=== PATIENT | female | born 1995 | race Two or more races ===

== ENCOUNTER 2018-07-09 09:26 | Emergency (ER) ==
[2018-07-09 09:32] VITALS: BP 116/75; TEMP 98.4; BMI 24.3
--- NOTE | 2018-07-09 10:17 | ED.PDOC ---
General ED Provider: Dr. MAHSA DECKER Chief Complaint: Stated Complaint: Patient states is 6 mo and is incarcerated at [facility]. This AM patient complained of sudden onset of suprapubic pain and had small amt bright red vaginal spotting. Officer reported she was doubled over in pain in the halfway and upon entering car for trip to hospital appeared to have spontaneous resolution of pain, no further complaints. Denies Vaginal bleeding at present. FHT 147. Explained need for evalution including Ultrasound.Requested to do pelvic exam to assess and Cervical thinning or dilation but patient refused.(confirmed by NAHUN Colon) Time Seen by Physician: 10:05 Mode of Arrival: Walk-In Information Source: Patient Exam Limitations: No limitations Primary Care Provider: OB in [facility] Referred to ED by: Other (halfway) Nursing and Triage Documentation Reviewed and Agree: Yes Does patient meet sepsis criteria?: No System Inflammatory Response Syndrome: Not Applicable Sepsis Protocol: For patient's 13 years and over: Temp is 96.8 and below OR 101 and greater Pulse >90 BPM Resp >20/minute Acutely Altered Mental Status Are patient's symptoms suggestive of a new infection, such as: -Pneumonia -Skin, Soft Tissue -Endocarditis -UTI -Bone, Joint Infection -Implantable Device -Acute Abdominal Infection -Wound Infection -Meningitis -Blood Stream Catheter Infection -Unknown STEAM DRIER TENDER Complaint Exam - Vaginal Bleeding Complaint/Exam Symptoms Are: Resolved Timing: Intermittent Initial Severity: Moderate Current Severity: None # of Pads Per Hour: 0 Character: Reports: Bright red Aggravating: Reports: None Alleviating: Reports: Rest Associated Signs and Symptoms: Reports: Cramping. Denies: Dizziness, Lightheadedness, Pale, UTI symptoms, Abdominal pain, Generalized pain Related History: Reports: Similar episode (hx sub chorionic bleed and has had 2 rhogam injections) : 1 Para: 0 Ectopic Risk Factors: Reports: None Spontaneous AB Risk Factors: Reports: None Placental Abruption Risk Factors: Reports: None Patient Rh Status: Unknown (suspect Rh neg since she received RHogam) Related Surgical History: Reports: None Abdominal Findings: Present: None, Other (pos active movement) Vaginal Exam: Present: Normal Findings (Patient refused exam) Differential Diagnoses: Placenta Previa - Labor/Delivery Complaint/Exam Expected Date of Delivery: 10/11/18 Review of Systems - Review Of Systems Constitutional: Reports: No symptoms Eyes: Reports: No symptoms Ears, Nose, Mouth, Throat: Reports: No symptoms Respiratory: Reports: No symptoms Cardiac: Reports: No symptoms GI: Reports: No symptoms : Reports: No symptoms Musculoskeletal: Reports: No symptoms Skin: Reports: No symptoms Neurological: Reports: No symptoms Endocrine: Reports: No symptoms Hematologic/Lymphatic: Reports: No symptoms All Other Systems: Reviewed and Negative Past Medical History - Past Medical History Previously Healthy: Yes Endocrine: Reports: None Cardiovascular: Reports: None Respiratory: Reports: None Hematological: Reports: None Gastrointestinal: Reports: None Genitourinary: Reports: None Neuro/Psych: Reports: None Musculoskeletal: Reports: None Cancer: Reports: None Last Menstrual Period: - Surgical History General Surgical History: Reports: None - Family History Family History: Reports: None - Social History Smoking Status: Never smoker Hx Substance Use: No Alcohol Screening: None Physical Exam - Physical Exam Appearance: Well-appearing, No pain distress, Well-nourished Eyes: DANDRE, EOMI, Conjunctiva clear ENT: Ears normal, Nose normal, Oropharynx normal Respiratory: Airway patent, Breath sounds clear, Breath sounds equal, Respirations nonlabored Cardiovascular: RRR, Pulses normal, No rub, No murmur GI/: Soft, Nontender, No masses, Bowel sounds normal, No Organomegaly ( positive uterine enlargement) Musculoskeletal: Normal strength, ROM intact, No edema, No calf tenderness Skin: Warm, Dry, Normal color Neurological: Sensation intact, Motor intact, Reflexes intact, Cranial nerves intact, Alert, Oriented Psychiatric: Affect appropriate, Mood appropriate Critical Care Note - Critical Care Note Total Time (mins): 0 Course - Course Orders, Labs, Meds: Orders Category Date Time Status ULTRASOUND OB/TA LIMITED [U/S OB/TA LIMITED] Stat RADS 07/09/18 10:18 Completed Vital Signs: Temp Pulse Resp BP Pulse Ox 07/09/18 09:28 98.4 F 66 18 116/75 98 Departure - Departure Time of Disposition: 12:25 Disposition: HOME SELF-CARE Discharge Problem: Abdominal pain during intrauterine , Subchorionic hematoma in second trimester Instructions: Subchorionic Hemorrhage (ED), at 23 to 26 Weeks (ED) Condition: Good Pt referred to PMD for follow-up: Yes IPMP verified?: No Additional Instructions: Currently US does not reveal active bleeding at site of previous subchorionic bleeding. Color Doppler flow negative for active bleeding Remain at pelvic rest-no sexual relations etc. No strenuous activity Ok to be taken back to halfway and monitor of additional symptoms Seek follow up care with OB in next 7 days or earlier if symptoms worsen Remain on vitamin daily Allergies/Adverse Reactions: Allergies No Known Allergies Allergy (Verified 07/09/18 09:32) Home Medications: Ambulatory Orders Albuterol Sulfate [Ventolin Hfa] 18 gm IH PRN PRN 07/09/18 Calcium Carbonate [Calcium] 500 mg PO DAILY 07/09/18 Vit Calc,Iron,Folic [ Vitamins] 1 each PO DAILY 07/09/18
--- NOTE | 2018-07-09 11:15 | US ---
EXAM: Ultrasound obstetrical limited HISTORY: Subchorionic hemorrhage. Decreased movement COMPARISON: None available TECHNIQUE: Gómez-scale and color Doppler images FINDINGS: Single live intrauterine gestation noted in cephalic position. heart rate recorded at 146 beats per minute. Placenta is located posteriorly. Prominent hypoechogenicity in the subchor ionic region with multiple small internal anechoic foci without significant color flow on Doppler canelo luation. Amniotic fluid volume appears normal. Estimated gestational age is 25 weeks 1 day based on the following: Head circumference 22.76 cm, 24 weeks 6 days Abdominal circumference 20.4 cm, 25 weeks Femur length 5.03 cm, 27 weeks Estimated weight 839 grams. Ovaries not seen. No pelvic fluid collections identified. IMPRESSION: 1. Single live intrauterine gestation in cephalic position with estimated gestational age of 25 week s 1 day, with estimated date of delivery 10/21/2018. 2. Prominent hypoechoic/anechoic area in the subchorionic region could represent the reported previo us subchorionic hemorrhage. Follow-up is recommended.
== END 2018-07-09 11:35 | disposition home or self-care (01) ==
LOC: ED 09:26
DX: O36.8921 Maternal care for other specified fetal problems, second trimester, fetus 1 (principal); R10.30 Lower abdominal pain, unspecified
CPT/HCPCS: 99283